=== PATIENT | male | born 1975 | race Caucasian/White ===

== ENCOUNTER 2020-12-07 06:36 | Day surgery (SDC) | payer BC ==
[~2020-12-07] VITALS: Ht 182.9 cm; Wt 93.7 kg
[2020-12-07 07:14] VITALS: BP 132/83; PULSE 65; TEMP 97.8
[2020-12-07] MEDS ORDERED: NORCO 325 MG-51 TAB PO (09:22)
[2020-12-07 10:05] VITALS: BP 119/65; PULSE 62
--- NOTE | 2020-12-07 10:05 | NUR ---
Pt returns to [facility] from PACU, alert and oriented x3, denies nausea, mild discomfort to abdomen 3/10 manageable at this time. at bedside. 3 lap sites with exofen clean and dry. Call light in reach. Coffee provided per request. VSS.
[2020-12-07 10:20] VITALS: BP 116/69; PULSE 64
--- NOTE | 2020-12-07 10:20 | NUR ---
Pt doing well, given a muffin and tolerate well, no nausea. VSS. Call light in reach.
[2020-12-07 10:35] VITALS: BP 120/68; PULSE 72; TEMP 97.5
--- NOTE | 2020-12-07 10:45 | NUR ---
Tylenol given per orders for discomfort, pt does not like taking pain medication. Call light in reach, no other needs at this time.
[2020-12-07 10:50] VITALS: BP 118/64; PULSE 70
--- NOTE | 2020-12-07 11:15 | NUR ---
Pt up to the bathroom, gait steady, voids without difficulty. Discharge instructions provided and IV discontinued to left hand. Pt taken out via wheelchair and left in care of his at 1130.
== END 2020-12-07 11:30 | disposition home or self-care (01) ==
LOC: SDCO 06:36
DX: K40.90 Unilateral inguinal hernia, without obstruction or gangrene, not specified as recurrent (principal); Z20.822 Contact with and (suspected) exposure to COVID-19
CPT/HCPCS: C1781; J2704; J3010; J7120